=== PATIENT | male | born 1970 | race Caucasian/White ===

== ENCOUNTER 2018-11-17 18:07 | Emergency (ER) | payer BC ==
[2018-11-17] MEDS ORDERED: HYDROCODONE/APAP 10/325 TAB ONE (19:12)
[2018-11-17] MEDS ORDERED: CLINDAMYCIN IV 150 MG/ML (4 mL) VIAL ONE (19:23)
--- NOTE | 2018-11-17 19:43 | ER ---
Nurse's Notes [facility] Name: Sanju Castillo Age: 48 yrs Sex: Male : 1970 Arrival Date: 11/17/2018 Time: 18:13 Bed 19 Private MD: Diagnosis: Unspecified otitis externa, right ear Presentation: 11/17 18:17 Presenting complaint: Patient states: i went to the urgent care today for R ear pain hj and i was Rx with ciprodex drops and clindamycin PO, the pain gets worse that im now having headache and R jaw pain; denies fever;. Transition of care: patient was not received from another setting of care. Onset of symptoms was November 17, 2018. Risk Assessment: Do you want to hurt yourself or someone else? Patient reports no desire to harm self or others. Initial Sepsis Screen: Does the patient meet any 2 criteria? No. Patient's initial sepsis screen is negative. Does the patient have a suspected source of infection? No. Patient's initial sepsis screen is negative. Care prior to arrival: None. 18:17 Method Of Arrival: Ambulatory 18:17 Acuity: LEMUEL 4 hj Triage Assessment: 18:20 General: Appears in no apparent distress. uncomfortable, Behavior is calm, cooperative, hj appropriate for age. Pain: Complains of pain in right ear. Pain: Complains of pain in R jaw. EENT: Reports pain in right ear. Historical: - Allergies: 18:19 No Known Allergies; hj - Home Meds: 18:19 Lantus 100 unit/mL Sub-Q soln [Active]; hj - PMHx: 18:19 Diabetes - NIDDM; hj - PSHx: 18:19 None; hj - Immunization history:: Adult Immunizations not up to date. - Social history:: Smoking status: Patient/guardian denies using tobacco, Patient uses alcohol, occasionally. - Ebola Screening: : Patient negative for fever greater than or equal to 101.5 degrees Fahrenheit, and additional compatible Ebola Virus Disease symptoms Patient denies exposure to infectious person Patient denies travel to an Ebola-affected area in the 21 days before illness onset. Screenin:20 Abuse screen: Denies threats or abuse. Denies injuries from another. Nutritional hj screening: No deficits noted. Tuberculosis screening: No symptoms or risk factors identified. Fall Risk None identified. Assessment: 18:21 General: Appears in no apparent distress. uncomfortable, Behavior is calm, cooperative, hj appropriate for age. Pain: Complains of pain in right ear, R jaw. Neuro: Level of Consciousness is awake, alert, obeys commands, Oriented to person, place, time, situation, Appropriate for age. Cardiovascular: Capillary refill < 3 seconds Patient's skin is warm and dry. Respiratory: Airway is patent Respiratory effort is even, unlabored, Respiratory pattern is regular, symmetrical. GI: No signs and/or symptoms were reported involving the gastrointestinal system. : No signs and/or symptoms were reported regarding the genitourinary system. EENT: Reports pain in right ear. Derm: No signs and/or symptoms reported regarding the dermatologic system. Musculoskeletal: No signs and/or symptoms reported regarding the musculoskeletal system. 18:32 Reassessment: awaiting for provider;. hj 18:48 Reassessment: provider in room; awaiting POC;. hj 19:10 General: Appears in no apparent distress. uncomfortable, Behavior is calm, cooperative, rr5 appropriate for age. Pain: Complains of pain in right ear Pain radiates to right jaw Pain currently is 10 out of 10 on a pain scale. Quality of pain is described as aching, Pain began gradually, Is intermittent. Neuro: Level of Consciousness is awake, alert, obeys commands, Oriented to person, place, time, situation, Appropriate for age. Cardiovascular: Capillary refill < 3 seconds Patient's skin is warm and dry. Respiratory: Airway is patent Respiratory effort is even, unlabored, Respiratory pattern is regular, symmetrical. GI: No signs and/or symptoms were reported involving the gastrointestinal system. : No signs and/or symptoms were reported regarding the genitourinary system. EENT: Reports pain in right ear. Derm: Skin is intact, Skin temperature is warm. Musculoskeletal: Circulation, motion, and sensation intact. Capillary refill < 3 seconds. 19:55 Reassessment: Patient appears in no apparent distress at this time. Patient is alert, rr5 oriented x 3, equal unlabored respirations, skin warm/dry/pink. Patient states symptoms have improved. 20:25 Reassessment: Patient appears in no apparent distress at this time. Patient is alert, rr5 oriented x 3, equal unlabored respirations, skin warm/dry/pink. discharge instruction given and explained without complaints made. Vital Signs: 18:20 BP 160 / 106; Pulse 105; Resp 18; Temp 99.4(O); Pulse Ox 99% on R/A; Weight 127.01 kg; hj Height 6 ft. 1 in. (185.42 cm); Pain 10/10; 19:10 BP 136 / 83; Pulse 95; Resp 17; Temp 99.4; Pulse Ox 99% ; Pain 10/10; rr5 20:25 BP 130 / 75; Pulse 90; Resp 17; Temp 99.2; Pulse Ox 99% ; Pain 5/10; rr5 18:20 Body Mass Index 36.94 (127.01 kg, 185.42 cm) hj 19:10 pain medication given rr5 ED Course: 18:13 Patient arrived in ED. mr 18:17 Ron Elizondo RN is Primary Nurse. hj 18:18 Vic Valdes NP is PHCP. pm1 18:18 Allen Hernandez MD is Attending Physician. pm1 18:19 Triage completed. hj 18:21 Arm band placed on right wrist. hj 18:21 Patient has correct armband on for positive identification. Bed in low position. Call hj light in reach. Side rails up X 1. Adult w/ patient. 20:29 No provider procedures requiring assistance completed. Patient did not have IV access rr5 during this emergency room visit. Administered Medications: 18:54 Drug: [place] 10 mg-325 mg 1 tabs Route: PO; hj 18:58 Follow up: Response: No adverse reaction; Pain is decreased hj 20:10 Follow up: Response: No adverse reaction rr5 19:14 Drug: Clindamycin 600 mg Route: IM; Site: right gluteus; rr5 20:15 Follow up: Response: No adverse reaction rr5 Outcome: 19:42 Discharge ordered by . pm1 20:29 Discharged to home ambulatory, with family. rr5 20:29 Condition: stable 20:29 Discharge instructions given to patient, Instructed on discharge instructions, follow up and referral plans. medication usage, Demonstrated understanding of instructions, follow-up care, medications, Prescriptions given X 2. 20:30 Patient left the ED. rr5 Signatures: Sandy Melvin mr Ron Elizondo RN RN Vic Valdes NP PASSPORT SUPPORT MANAGER pm1 Dave Anne, RN RN rr5
--- NOTE | 2018-11-17 19:43 | EDPHYS ---
Physician Documentation [facility] Name: Sanju Castillo Age: 48 yrs Sex: Male : 1970 Arrival Date: 11/17/2018 Time: 18:13 Bed 19 Private MD: ED Physician Allen Hernandez HPI: 11/17 20:00 This 48 yrs old Male presents to ER via Ambulatory with complaints of Right pm1 Ear Pain, Ear Swelling. 20:00 The patient presents with pain, swelling. The complaints affect the right ear. Onset: pm1 The symptoms/episode began/occurred 2 day(s) ago. Modifying factors: The symptoms are alleviated by nothing, the symptoms are aggravated by pulling on ears, touching. Associated signs and symptoms: Pertinent negatives: fever, tinnitus. Severity of symptoms: in the emergency department the symptoms are worse. The patient has experienced a previous episode, many years ago. The patient has been recently seen at an urgent care, today, for similar complaints, was given a prescription for antibiotics. Historical: - Allergies: 18:19 No Known Allergies; hj - Home Meds: 18:19 Lantus 100 unit/mL Sub-Q soln [Active]; hj - PMHx: 18:19 Diabetes - NIDDM; hj - PSHx: 18:19 None; hj - Immunization history:: Adult Immunizations not up to date. - Social history:: Smoking status: Patient/guardian denies using tobacco, Patient uses alcohol, occasionally. - Ebola Screening: : Patient negative for fever greater than or equal to 101.5 degrees Fahrenheit, and additional compatible Ebola Virus Disease symptoms Patient denies exposure to infectious person Patient denies travel to an Ebola-affected area in the 21 days before illness onset. ROS: 20:00 Constitutional: Negative for fever, chills, and weight loss, Eyes: Negative for injury, pm1 pain, redness, and discharge. 20:00 Neck: Negative for injury, pain, and swelling, Cardiovascular: Negative for chest pain, palpitations, and edema, Respiratory: Negative for shortness of breath, cough, wheezing, and pleuritic chest pain, Abdomen/GI: Negative for abdominal pain, nausea, vomiting, diarrhea, and constipation, Back: Negative for injury and pain, : Negative for injury, bleeding, discharge, and swelling, MS/Extremity: Negative for injury and deformity, Skin: Negative for injury, rash, and discoloration, Neuro: Negative for headache, weakness, numbness, tingling, and seizure. 20:00 ENT: Positive for ear pain, Negative for drainage from ear(s). Exam: 20:00 Constitutional: This is a well developed, well nourished patient who is awake, alert, pm1 and in no acute distress. Head/Face: Normocephalic, atraumatic. Eyes: Pupils equal round and reactive to light, extra-ocular motions intact. Lids and lashes normal. Conjunctiva and sclera are non-icteric and not injected. Cornea within normal limits. Periorbital areas with no swelling, redness, or edema. 20:00 Neck: Trachea midline, no thyromegaly or masses palpated, and no cervical lymphadenopathy. Supple, full range of motion without nuchal rigidity, or vertebral point tenderness. No Meningismus. Chest/axilla: Normal chest wall appearance and motion. Nontender with no deformity. No lesions are appreciated. Cardiovascular: Regular rate and rhythm with a normal S1 and S2. No gallops, murmurs, or rubs. Normal PMI, no JVD. No pulse deficits. Respiratory: Lungs have equal breath sounds bilaterally, clear to auscultation and percussion. No rales, rhonchi or wheezes noted. No increased work of breathing, no retractions or nasal flaring. Abdomen/GI: Soft, non-tender, with normal bowel sounds. No distension or tympany. No guarding or rebound. No evidence of tenderness throughout. Back: No spinal tenderness. No costovertebral tenderness. Full range of motion. Skin: Warm, dry with normal turgor. Normal color with no rashes, no lesions, and no evidence of cellulitis. MS/ Extremity: Pulses equal, no cyanosis. Neurovascular intact. Full, normal range of motion. 20:00 ENT: External ear(s): are unremarkable, Ear canal(s): swelling, that is moderate, of the right canal, TM's: are normal, no evidence of bulging, no dullness, no erythema, Examination of the other ear shows no obvious abnormality. 20:00 Neuro: Orientation: is normal, Motor: is normal, moves all fours. Vital Signs: 18:20 BP 160 / 106; Pulse 105; Resp 18; Temp 99.4(O); Pulse Ox 99% on R/A; Weight 127.01 kg; hj Height 6 ft. 1 in. (185.42 cm); Pain 10/10; 19:10 BP 136 / 83; Pulse 95; Resp 17; Temp 99.4; Pulse Ox 99% ; Pain 10/10; rr5 20:25 BP 130 / 75; Pulse 90; Resp 17; Temp 99.2; Pulse Ox 99% ; Pain 5/10; rr5 18:20 Body Mass Index 36.94 (127.01 kg, 185.42 cm) hj 19:10 pain medication given rr5 MDM: 18:25 Patient medically screened. [facility] 19:40 Data reviewed: vital signs. Data interpreted: Pulse oximetry: on room air is 99 %. pm1 Interpretation: normal. Counseling: I had a detailed discussion with the patient and/or guardian regarding: the historical points, exam findings, and any diagnostic results supporting the discharge/admit diagnosis, the need for outpatient follow up, to return to the emergency department if symptoms worsen or persist or if there are any questions or concerns that arise at home. 19:40 ED course: Patient has a prescription for Ciprodex and clindamycin from urgent care. pm1 Administered Medications: 18:54 Drug: [place] 10 mg-325 mg 1 tabs Route: PO; hj 18:58 Follow up: Response: No adverse reaction; Pain is decreased hj 20:10 Follow up: Response: No adverse reaction rr5 19:14 Drug: Clindamycin 600 mg Route: IM; Site: right gluteus; rr5 20:15 Follow up: Response: No adverse reaction rr5 Disposition: 11/18 07:09 Co-signature as Attending Physician, Allen Hernandez MD I agree with the assessment and [facility] plan of care. Disposition: 11/17/18 19:42 Discharged to Home. Impression: Unspecified otitis externa, right ear. - Condition is Stable. - Discharge Instructions: Otitis Externa. - Prescriptions for Tylenol- Codeine #3 300-30 mg Oral Tablet - take 2 tablets by ORAL route every 6 hours As needed; 20 tablet. Ciprodex 0.3- 0.1 % Otic Drops, Suspension - instill 4 drop by OTIC route every 12 hours for 7 days , for ears ONLY; 1 Container. - Medication Reconciliation Form, Thank You Letter, Antibiotic Education, Prescription Opioid Use form. - Follow up: Emergency Department; When: As needed; Reason: Worsening of condition. Follow up: Private Physician; When: 2 - 3 days; Reason: Recheck today's complaints, Continuance of care, Re-evaluation by your physician. - Problem is new. - Symptoms have improved. Signatures: Allen Hernandez MD MD cha Joaquin, Henry RN RN Vic Ruelas NP INFRASTRUCTURE SOFTWARE ENGINEER pm1 Dave Anne RN RN rr5 Corrections: (The following items were deleted from the chart) 11/17 20:30 19:42 11/17/2018 19:42 Discharged to Home. Impression: Unspecified otitis externa, rr5 right ear. Condition is Stable. Forms are Medication Reconciliation Form, Thank You Letter, Antibiotic Education, Prescription Opioid Use. Follow up: Emergency Department; When: As needed; Reason: Worsening of condition. Follow up: Private Physician; When: 2 - 3 days; Reason: Recheck today's complaints, Continuance of care, Re-evaluation by your physician. Problem is new. Symptoms have improved. pm1
== END 2018-11-17 20:30 | disposition home or self-care (01) ==
LOC: ER 18:07
DX: H60.91 Unspecified otitis externa, right ear (principal); E11.9 Type 2 diabetes mellitus without complications; Z79.4 Long term (current) use of insulin
CPT/HCPCS: 96372; 99283; S0077